=== PATIENT | male | born 1985 | race American Indian/Alaskan Native ===

== ENCOUNTER 2021-08-26 09:45 | Outpatient (CLI) | payer BC ==
--- NOTE | 2021-08-26 13:48 | Ultrasound Report ---
ULTRASOUND ABDOMEN, LIMITED INDICATION / CLINICAL INFORMATION: BILIURIA. COMPARISON: None available. FINDINGS: PANCREAS: Visualized portion shows no significant abnormality. AORTA: No significant abnormality. IVC: No significant abnormality. LIVER: The liver is normal in size measuring 16.3 cm with diffusely echogenic appearance. Normal hepa topedal blood flow within the main portal vein. GALLBLADDER: No significant abnormality. BILE DUCTS: No significant abnormality. Common bile duct measures 4 mm. RIGHT KIDNEY: The right kidney measures 9.6 cm. No significant abnormality. FREE FLUID: None. ADDITIONAL FINDINGS: None. IMPRESSION: 1. Diffusely echogenic appearance of the liver, most commonly seen with steatosis. 2. No acute abnormality. Signer Name: Minh Andrews MD Signed: 08/26/2021 1:43 PM Workstation Name: [id number]
== END 2021-08-26 09:46 | disposition home or self-care (01) ==
LOC: US 09:45
PROVIDERS: ATTEND Internal Medicine
DX: R82.2 Biliuria (principal)
CPT/HCPCS: 76705